=== PATIENT | female | born 1975 | race Caucasian/White ===

== ENCOUNTER 2017-07-17 00:32 | Emergency (ER) | payer BC, OTHER | END 2017-07-17 02:30 | disposition home or self-care (01) | LOC: FTE 00:32 | DX: R05 Cough (principal); F17.210 Nicotine dependence, cigarettes, uncomplicated | CPT/HCPCS: 99284 ==

== ENCOUNTER 2017-09-12 01:02 | Emergency (ER) | payer BC | END 2017-09-12 04:07 | disposition home or self-care (01) | LOC: E/R 01:02 | DX: L03.113 Cellulitis of right upper limb (principal); F17.210 Nicotine dependence, cigarettes, uncomplicated | CPT/HCPCS: 99283; Z7502 ==

== ENCOUNTER 2018-09-14 03:17 | Emergency (ER) | payer BC ==
[2018-09-14 04:07] LABS: URINE PH (Dip) POC 5.5 (5.0-8.5)
[2018-09-14 04:07] LABS: URINE BLOOD (Dip) POC Negative (NEGATIVE); URINE GLUCOSE (Dip) POC Negative (NEGATIVE); URINE KETONES (Dip) POC Negative (NEGATIVE); URINE LEUKOCYTE EST (Dip) POC Trace (NEGATIVE); URINE NITRITE (Dip) POC Negative (NEGATIVE); URINE TOTAL PROTEIN POC 1+ (NEGATIVE)
== END 2018-09-14 04:40 | disposition home or self-care (01) ==
LOC: FTE 03:17
DX: N39.0 Urinary tract infection, site not specified (principal); Z21 Asymptomatic human immunodeficiency virus [HIV] infection status; Z87.891 Personal history of nicotine dependence
CPT/HCPCS: 81003; 99283

== ENCOUNTER 2018-10-09 01:52 | Emergency (ER) | payer SELFPAY, BC | END 2018-10-09 02:47 | disposition left against medical advice (07) | LOC: FTE 01:52 | DX: Z53.21 Procedure and treatment not carried out due to patient leaving prior to being seen by health care provider (principal) ==